=== PATIENT | male | born 1960 | race Caucasian/White ===

== ENCOUNTER 2022-07-15 16:34 | Inpatient (IN) | payer OTHER ==
[~2022-07-15] VITALS: Ht 170.2 cm; Wt 72.7 kg
[2022-07-15 16:50] VITALS: BP 105/62; PULSE 88; TEMP 98
--- NOTE | 2022-07-15 17:03 | NUR ---
Patient arrived [place] the [place] [facility] [place] own [place] at 1700. Patient alert and oriented x4. Patient c/o pain at LLQ and describes pain as dull. Patient states he received morphine med from previous hospital before arrival to the unit. INT on the right a/c intact. Patient oriented to rooom and the use of call mckinley.Family member at the bedside.
--- NOTE | 2022-07-15 18:42 | NUR ---
Patient c/o abdominal pain and morphine administered. See e-mar for notes.
[2022-07-15 19:34] VITALS: BP 150/89; PULSE 72; TEMP 98.6
[2022-07-15 23:35] VITALS: BP 145/71; PULSE 86; TEMP 98.4
--- NOTE | 2022-07-16 00:03 | NUR ---
Pt in bed upon entering room around 2150 for shift assessment. A&Ox4. Reports having pain at this time scored at 8/10 on abdomen. Denies nausea. Pt is NPO at this time. RAC peripheral line is CDI with fluids running at this time. SCDs on BLE. Pt denied any other need or concern at this time and requested pain medication. Belongings anc call light are within reach.
[2022-07-16 03:28] VITALS: BP 163/83; PULSE 70; TEMP 99
[2022-07-16 06:31] LABS: BASO % 0.5 % (0.0-2.0); EOS # 0.1 K/mm3 (0.0-0.7); EOS % 1.3 % (0.0-4.0); GRAN # 3.9 K/mm3 (1.4-6.5); GRAN % 64.2 % (42.2-75.2); HEMATOCRIT 40.6 % (42.0-52.0); HEMOGLOBIN 13.9 g/dl (13.5-18.0); LYMPH # 1.2 K/mm3 (1.2-3.4); LYMPH % 19.2 % (20.0-51.0); MEAN CELL VOLUME 100 fl (80.0-100.0); MEAN CORPUSCULAR HEMOGLOBIN 34 pg (27-31); MEAN CORPUSCULAR HGB CONC 34 g/dl (33.0-37.0); MEAN PLATELET VOLUME 11.8 fl (7.4-10.4); MONO # 0.9 K/mm3 (0.1-0.6); MONO % 14.5 % (1.7-9.3); PLATELET COUNT 172 K/mm3 (130-400); RED BLOOD COUNT 4.08 M/mm3 (4.20-5.60); REDCELL DISTRIBUTION WIDTH-CV 12.8 % (11.5-14.5)
[2022-07-16 06:41] LABS: CALCIUM 8.7 mg/dL (8.4-10.2); CREATININE, serum 0.83 mg/dL (0.72-1.25); POTASSIUM 4.6 mmol/L (3.5-4.5)
--- NOTE | 2022-07-16 07:52 | NUR ---
Received shift report from the night nurse, Cris Zabala LPN
[2022-07-16 08:00] VITALS: BP 115/59; PULSE 74; TEMP 97.8
--- NOTE | 2022-07-16 08:04 | NUR ---
Patient resting in bed. Patient c/o discomfort at his abdomen at LLQ and requesting pain medication. Morphine administered per orders. Patient denies episode of n/v. Will continue to monitor patient.
--- NOTE | 2022-07-16 08:08 | NUR ---
Patient off the unit for radiology at 0808 via [employer].
--- NOTE | 2022-07-16 10:24 | NUR ---
Patient c/o abdominal distention, pain and feeling nauseous. Morphine and zofran administered and will continue monitoring patient. Family member at the bedside.
[2022-07-16 11:54] VITALS: BP 122/72; PULSE 68; TEMP 97.9
--- NOTE | 2022-07-16 14:38 | NUR ---
SW met with patient to complete intake and discuss discharge plan. Patients Matilda ([phone]) is present at bedside. Together they live at home in [place]. Patient is fully independent with his ADL's and IADL's. He does not utilizes any home DME to assist with mobility and has no home oxygen needs. PCP is Olga Lidia Russ in [place] and they utilize the [facility] in [place] for prescriptions. Patient denies have a DPOA-HC established and does not wish to create one. He is planning on returning home once medically ready. Discharge plan: Home with spouse.
--- NOTE | 2022-07-16 15:40 | NUR ---
Patient reports of severe abdominal pain and describes pain as tightness. Patient rated pain level 8/10 and morphine administered IV. Will continue to reassess pain level. Call mckinley within reach.
[2022-07-16 15:45] VITALS: BP 152/80; PULSE 80; TEMP 98.7
--- NOTE | 2022-07-16 17:55 | NUR ---
Patient laying in bed watching TV. Patient states he has been passing little gas and feels a little bit better. Patient rated pain level 6/10. Patient states that he will take a shower late in the evening. Clean linens and gown placed on the counter by the room.
[2022-07-16 20:07] VITALS: BP 155/74; PULSE 79; TEMP 98.1
--- NOTE | 2022-07-16 21:04 | NUR ---
PT IN BED, WATCHING TV. COMPLAINS OF ABD PAIN. MEDICATED WITH MORPHINE 2MG IVP AT THIS TIME. DENIES NAUSEA. TAKING SIPS/CHIPS. HAS GOOD BOWEL SOUNDS. REPORTS PASSING "SOME" GAS.
[2022-07-16 23:13] VITALS: BP 153/76; PULSE 78; TEMP 97.9
[2022-07-17] VITALS (12 sets, daily range): BP systolic 114–170; BP diastolic 60–75; PULSE 70–81; TEMP 97.9–98.7
--- NOTE | 2022-07-17 03:13 | NUR ---
PT REPORTS MILD NAUSEA AND ABD PAIN, MEDICATED WITH ZOFRAN 4MG IVP AND MORPHINE 2MG IVP AT THIS TIME.
--- NOTE | 2022-07-17 06:35 | NUR ---
up and in bathroom independently, bedside shift report received from VENTURA Fournier
--- NOTE | 2022-07-17 08:50 | NUR ---
Dr Zacarias in to see patient, will plan surgery, full assessment completed, see interventions for further info,
--- NOTE | 2022-07-17 09:15 | NUR ---
consent signed ready for surgery, at bedside
--- NOTE | 2022-07-17 11:35 | NUR ---
returned to room from PACU per bed, awake and alert, IV infusing per gravity, has two lap sites with bandaids that are CD&I, denies pain or nausea, will provide water
--- NOTE | 2022-07-17 11:45 | NUR ---
taking sips of water and toelrates without nausea, at bedside
--- NOTE | 2022-07-17 12:15 | NUR ---
appears to be sleeping, eyes closed, resp quiet and easy
--- NOTE | 2022-07-17 13:18 | NUR ---
Digital Printer Operator rounds: Patient's bed was not in room. Likely had gone to surgery. Digital Printer Operator prayed for a successful surgery.
--- NOTE | 2022-07-17 13:19 | NUR ---
assisted up to bathroom and voided qs, has mod amount bleeding on gown, bleeding noted under umbilical dressing and has oozed down abdomen, area cleaned, new bandaids placed with 2x2 and paper tape to provide some pressure, tolerated well, has been provided with clear liquids, back to bedside
--- NOTE | 2022-07-17 14:20 | NUR ---
resting in bed with eyes closed, no more bleeding from umbilical inc, tolerated clear liquids well, will advance diet
--- NOTE | 2022-07-17 16:00 | NUR ---
requesting to get up and take a walk, IV to INT, will get up and ambulate independently
--- NOTE | 2022-07-17 16:49 | NUR ---
talked with him about having something to eat, he really only wants some crackers right now and will try soup later, crackers provided, Dr Zacarias in to see patient
--- NOTE | 2022-07-17 18:09 | NUR ---
patient states he is unable to eawt soup that he is feeling very bloated still, no pain or nausea just full, Dr Zacairas notified and will plan on him staying overnight
--- NOTE | 2022-07-17 18:55 | NUR ---
bedside shift report given to VENTURA Fournier
--- NOTE | 2022-07-17 21:24 | NUR ---
PT HAS ELEVATED B/P. HAS AMBULATED IN HALLWAY, ABD REMAINS DISTENDED. NEW ORDER FOR ORAL PAIN MEDS, NORCO GIVEN. RAC INT. LAP SITES X2 WITH BANDAIDS D/I. HAS GOOD BOWEL SOUNDS, REPORTS MINIMAL FLATUS.
--- NOTE | 2022-07-17 22:12 | NUR ---
REPORTS ABD PAIN MINIMALLY LESS, NORCO REPEATED.
--- NOTE | 2022-07-18 00:30 | NUR ---
PT STILL HAS ELEVATED B/P AND FEELS NAUSEA. UP IN RECLINER.
[2022-07-18 00:33] VITALS: BP 172/82; PULSE 73; TEMP 97.5
--- NOTE | 2022-07-18 01:30 | NUR ---
PT HAS MODERATE AMOUNT OF GREEN EMESIS ON FLOOR, REPORTS STOMACH FEELS BETTER, LESS DISTENDED.
--- NOTE | 2022-07-18 01:37 | NUR ---
MEDICATED WITH MORPHINE 2MG IVP AND ZOFRAN 4MG IVP AT THIS TIME. INT TO RAC FLUSHES WELL.
[2022-07-18 02:16] VITALS: BP 122/66
[2022-07-18 04:40] VITALS: BP 128/61; PULSE 71; TEMP 98
--- NOTE | 2022-07-18 05:00 | NUR ---
FEELING BETTER, RESTING.
--- NOTE | 2022-07-18 07:07 | NUR ---
Shift report received from the night nurseIrlanda RN
[2022-07-18 07:29] VITALS: BP 116/57; PULSE 67; TEMP 98
--- NOTE | 2022-07-18 08:50 | NUR ---
Patient resting in bed alert and oriented. Patient denies abdominal tightness, tenderness or episodes of n/v. Patient has no needs at this time.
[2022-07-18 12:23] VITALS: BP 128/67; PULSE 65; TEMP 98.2
--- NOTE | 2022-07-18 14:22 | NUR ---
Discharge instruction given, patient verbalized understanding. INT discontinued. Patient escorted out of unit accompanied by spouse.
== END 2022-07-18 13:45 | disposition home or self-care (01) | DRG 337 ==
LOC: SURG 16:34
PROVIDERS: ADMIT Surgery
PROC: 0DN84ZZ Release Small Intestine, Percutaneous Endoscopic Approach (ICD-10-PCS; principal; 2022-07-17 10:30)
DX: K56.51 Intestinal adhesions [bands], with partial obstruction (principal); F10.90 Alcohol use, unspecified, uncomplicated; F17.210 Nicotine dependence, cigarettes, uncomplicated; Z87.442 Personal history of urinary calculi
CPT/HCPCS: A4314; G0378; G0379; J0690; J1100; J1170; J1200; J1885; J2270; J2405; J2704; J3010; J7120

== ENCOUNTER 2022-07-18 17:57 | Inpatient (IN) | payer OTHER ==
[~2022-07-18] VITALS: Ht 170.2 cm; Wt 72.7 kg
[2022-07-18 19:04] LABS: HEMATOCRIT 39.1 % (42.0-52.0); HEMOGLOBIN 13.1 g/dl (13.5-18.0); MEAN CELL VOLUME 101 fl (80.0-100.0); MEAN CORPUSCULAR HEMOGLOBIN 34 pg (27-31); MEAN CORPUSCULAR HGB CONC 34 g/dl (33.0-37.0); MEAN PLATELET VOLUME 11.3 fl (7.4-10.4); PLATELET COUNT 172 K/mm3 (130-400); RED BLOOD COUNT 3.87 M/mm3 (4.20-5.60); REDCELL DISTRIBUTION WIDTH-CV 12.5 % (11.5-14.5)
[2022-07-18 19:31] LABS: ALBUMIN 3.4 gm/dL (3.4-4.8); BILIRUBIN,TOTAL 0.4 mg/dL (0.2-1.2); C-REACTIVE PROTEIN 4.03 mg/dL (0.00-0.50); CREATININE, serum 0.93 mg/dL (0.72-1.25); POTASSIUM 3.5 mmol/L (3.5-4.5); TOTAL PROTEIN 6.2 gm/dL (6.2-8.1)
[2022-07-18 20:04] LABS: BAND 1 % (0-10); BASOPHIL 1 % (0-2); EOSINOPHIL 2 % (0-4); LYMPHOCYTE 17 % (20.0-51.0); NEUTROPHILS 55 % (42.0-75.2); PLATELET ESTIMATE NORMAL (NORMAL)
--- NOTE | 2022-07-18 22:30 | NUR ---
PT ARRIVES TO ROOM 323 VIA W/C FROM ED. IS ALERT AND ORIENTED X4. HAS RFA IV SITE WITH IVF INFUSING WITHOUT PROBLEM. ABD DISTENDED, FIRM, AUDIBLE BS NOTED. HAS LAP SITES X2, REMOVED BANDAID AT UMBILICUS. REPORTS PASSING "SOME" GAS. IS NPO FOR POSSIBLE SURGERY IN AM. VOIDING WITHOUT PROBLEM. DENIES NEED FOR NICOTENE PATCH.
[2022-07-18 22:53] VITALS: BP 168/79; PULSE 73; TEMP 98.2
[2022-07-19] VITALS (13 sets, daily range): BP systolic 121–148; BP diastolic 61–85; PULSE 65–84; TEMP 98–98.8
--- NOTE | 2022-07-19 00:43 | NUR ---
PT SLIGHTLY DROWSY, MEDICATED WITH MORPHINE 2MG IVP FOR ABD PAIN AT THIS TIME.
--- NOTE | 2022-07-19 02:54 | NUR ---
PT REPORTS FEELING NAUSEATED, ZOFRAN GIVEN IVP.
--- NOTE | 2022-07-19 04:24 | NUR ---
REPORTS ABD PAIN, REMAINS NPO FOR POSSIBLE SURGERY TODAY. MORPHINE 2MG IVP GIVEN.
[2022-07-19 06:28] LABS: HEMATOCRIT 38.2 % (42.0-52.0); HEMOGLOBIN 13.2 g/dl (13.5-18.0); MEAN CELL VOLUME 100 fl (80.0-100.0); MEAN CORPUSCULAR HEMOGLOBIN 34 pg (27-31); MEAN CORPUSCULAR HGB CONC 35 g/dl (33.0-37.0); MEAN PLATELET VOLUME 10.8 fl (7.4-10.4); PLATELET COUNT 181 K/mm3 (130-400); RED BLOOD COUNT 3.84 M/mm3 (4.20-5.60); REDCELL DISTRIBUTION WIDTH-CV 12.8 % (11.5-14.5)
[2022-07-19 06:44] LABS: CREATININE, serum 0.89 mg/dL (0.72-1.25); POTASSIUM 4.4 mmol/L (3.5-4.5)
--- NOTE | 2022-07-19 08:24 | NUR ---
Upon assessment patient reported no pain. Prior to assessment pateint reported mild pain and discomfort and asked for pain medication, primary nurse notified.
--- NOTE | 2022-07-19 12:40 | NUR ---
PT TO SURGERY PER BED WITH ANETA AT THIS TIME.
--- NOTE | 2022-07-19 12:57 | NUR ---
Initial visit: Pt was resting and content with by his side. Pt has no needs right now. Pt and appreciated the visit. Student Nurse will follow up as needed.
--- NOTE | 2022-07-19 15:36 | NUR ---
PT TO ROOM 323 PER BED WITH REPORT FROM [facility] PACU @6703. PT IS A/O X3 IVF RUNNING TO LFA PER GRAVITY. LUNGS CTA, 3 LAP SITES CDI, AT BEDSIDE. VSS, PT DENIES NEEDS AND PAIN AT THIS TIME.
--- NOTE | 2022-07-20 01:53 | NUR ---
0100 PT CALLED RN INTO ROOM STATING THAT HIS ABD WAS HURTING AND HER WANTED THIS RN TO ASSESS IT. PT STATED THAT HE FELT HIS ABD WAS MORE DISTENDED THAN IT WAS PREVIOUSLY. RN ASSESSED ABD BOWEL SOUNDS ACTIVE AND THE PATIENT STATED HE WAS PASSING GAS. RN PROVIDED PAIN MEDICATION AND NAUSEA MEDICATIONS, RN UNABLE TO INT PTS IV SITE DUE TO PT BEING UNABLE TO TAKE IN FLUIDS BECAUSE OF THE PAIN AND NAUSEA NOW PRESENTED. RN DOES NOT FEEL THAT PATIENTS ABD IS NOTABLY MORE DISTENDED THAN IT WAS ON PREVIOUS ASSESSMENT.
[2022-07-20 03:30] VITALS: BP 146/72; PULSE 79; TEMP 98.3
--- NOTE | 2022-07-20 04:54 | NUR ---
OVERNIGHT PATIENT WAS STABLE WITH NO COMPLAINTS AND WAS ABLE TO AMBULATE IN THE HALLS INDEPENDENTLY FOR ABOUT 20 MINUTES UNTIL ABOUT 0100 PT THEN BEGAN COMPLAINING THAT HE WAS NAUSEATED AND FELT LIKE HIS ABD WAS DISTENDED AND FULL. RN DID AN ASSESSMENT BOWEL SOUNDS ACTIVE IN ALL 4 QUADRANTS AND PATIENT STATED HE IS PASSING GAS. RN ADMINISTERED PAIN MEDICATION PER JUL X2 AND NAUSEA MEDICATION X1. PT REMAINS ON IV FLUIDS DUE TO LACK OF ORAL INTAKE. PT STILL ABLE TO AMBULATE AROUND ROOM INDEPENDENTLY. VITAL SIGNS REMAINED STABLE WITHIN NORMAL LIMITS.
--- NOTE | 2022-07-20 05:35 | NUR ---
0568 RN CALLED MD ELDRIDGE, ABOUT PATIENTS SYMPTOMS, KUB AND NPO ORDER PLACED FOR PATIENT.
[2022-07-20 07:05] LABS: BASO % 0.5 % (0.0-2.0); EOS # 0.1 K/mm3 (0.0-0.7); EOS % 0.6 % (0.0-4.0); GRAN # 5.8 K/mm3 (1.4-6.5); GRAN % 71.3 % (42.2-75.2); HEMATOCRIT 38.7 % (42.0-52.0); HEMOGLOBIN 13.3 g/dl (13.5-18.0); LYMPH # 1.1 K/mm3 (1.2-3.4); LYMPH % 13.3 % (20.0-51.0); MEAN CELL VOLUME 99 fl (80.0-100.0); MEAN CORPUSCULAR HEMOGLOBIN 34 pg (27-31); MEAN CORPUSCULAR HGB CONC 34 g/dl (33.0-37.0); MONO # 1.1 K/mm3 (0.1-0.6); MONO % 13.9 % (1.7-9.3); PLATELET COUNT 218 K/mm3 (130-400); RED BLOOD COUNT 3.92 M/mm3 (4.20-5.60); REDCELL DISTRIBUTION WIDTH-CV 12.7 % (11.5-14.5)
[2022-07-20 07:19] VITALS: BP 154/77; PULSE 77; TEMP 98
[2022-07-20 07:25] LABS: CALCIUM 9.1 mg/dL (8.4-10.2); CREATININE, serum 0.9 mg/dL (0.72-1.25); POTASSIUM 3.8 mmol/L (3.5-4.5)
--- NOTE | 2022-07-20 08:42 | NUR ---
Although lung sounds are clear and even, PT states he cannot deep breath d/t pain in abdomen.
--- NOTE | 2022-07-20 09:08 | NUR ---
Patient was recently admitted to this facility and discharged on 07/18. Patient returned back that day after worsening pain and returned back to this ER. Patient lives at home with his Matilda ([phone]) in [place]. Patient is normally fully independent with his ADL's and IADL's. He does not utilize any home DME to assist with ambulation or home oxygen. PCP is Olga Lidia Russ out of [place] and they utilize the [facility] for prescriptions. Patient does not have a DPOA-HC established and does not wish to create one at this time. Per Beverly [facility] CM patient upgraded to INPT status. Patient is planning on returning home once medically ready. Discharge plan:Home
[2022-07-20 11:06] VITALS: BP 168/79; PULSE 71; TEMP 98
[2022-07-20 15:31] VITALS: BP 134/72; PULSE 77; TEMP 97.9
--- NOTE | 2022-07-20 15:36 | NUR ---
Initial visit; Patient thanked Environmental Technician for looking in on him and offering God's blessings.
[2022-07-20 20:17] VITALS: BP 144/75; PULSE 76; TEMP 98.1
[2022-07-20 23:24] VITALS: BP 150/80; PULSE 74; TEMP 98.1
[2022-07-21 04:19] VITALS: BP 157/73; PULSE 81; TEMP 98.2
--- NOTE | 2022-07-21 05:54 | NUR ---
PATIENT ASSESSED AND GIVEN MEDICATIONS. HE IS PASSING FLATUS AND HAVING ACTIVE BM'S. NO PAIN MEDICATIONS NEEDED THIS SHIFT, RATING HIS PAIN FROM 0-3/10. HE IS TOLERATING HIS LOW FIBER DIET AND PO FLUIDS, IV FLUIDS ARE NOT CURRENTLY RUNNING PER PATIENT REQUEST. POSSIBLE DISCHARGE HOME TODAY. CALL LIGHT IN REACH. BED IN LOWEST POSITION.
[2022-07-21 07:25] VITALS: BP 154/71; PULSE 64; TEMP 98.2
--- NOTE | 2022-07-21 08:00 | NUR ---
Report received from VENTURA Garcia; patient currently resting comfortably in bed. Patient has LR running through a peripheral line. No other lines or tubes are in place at this time.
[2022-07-21 11:33] VITALS: BP 143/70; PULSE 79; TEMP 98.4
[2022-07-21 15:55] VITALS: BP 146/81; PULSE 74; TEMP 98.1
--- NOTE | 2022-07-21 16:56 | NUR ---
Patient discharged in stable condition; patient was taken out by wheelchair by jovani Davila; all patient's belongings were sent with patient.
== END 2022-07-21 16:50 | disposition home or self-care (01) | DRG 337 ==
LOC: COL.ER 17:57 → SURG 21:16
PROVIDERS: Nurse Practitioner; ADMIT Surgery
PROC: 0DN84ZZ Release Small Intestine, Percutaneous Endoscopic Approach (ICD-10-PCS; principal; 2022-07-19 12:45)
DX: K56.51 Intestinal adhesions [bands], with partial obstruction (principal); F17.210 Nicotine dependence, cigarettes, uncomplicated
CPT/HCPCS: OP; G0378; J0690; J1100; J1170; J2270; J2405; J2704; J3010; J7120; Q9967